=== PATIENT | male | born 1965 | race Caucasian/White ===

== ENCOUNTER 2016-11-08 08:23 | Emergency (ER) | payer BC, OTHER ==
[~2016-11-08] VITALS: Ht 180.3 cm; Wt 81.6 kg
--- OUTSIDE RECORDS SUMMARY | 2016-11-08 08:30 | XMS REPORT ---
Author Author NAVNEET MAN [facility] eClinicalWorks Address Unknown Phone Unavailable Care Team Providers Care General Machine Operator Name Role Phone NAVNEET MAN CP Unavailable Allergies, Adverse Reactions, Alerts Substance Reaction Event Type N.K.D.A. Info Not Available Non Drug Allergy Problems Problem Type Condition Code Onset Dates Condition Status Problem Chest pain, other 786.59 Active Problem Other dyspnea and respiratory abnormalities 786.09 Active Problem Nondependent tobacco use disorder 305.1 Active Problem Chronic airway obstruction, not elsewhere classified 496 Active Assessment Corneal abrasion S05.00XA Active Medications Medication Code System Code Instructions Start Date End Date Status Dosage Tobramycin [facility] [id number] 0.3 % Ophthalmic 4 times a day Sep 08, 2015 3 drop into affected eye Procedures Procedure Coding System Code Date Office Visit, Est Pt., Level 3 CPT-4 80169 Sep 08, 2015 Vital Signs Date/Time: Sep 08, 2015 Temperature 97.9 F Weight 174.5 lbs Height 74 in BMI 22.40 Index Blood Pressure Diastolic 72 mmHg Blood Pressure Systolic 118 mmHg Cardiac Monitoring Heart Rate 72 bpm Results No Known Results Summary Purpose eClinicalWorks Submission
[2016-11-08] MEDS ORDERED: LACTATED RINGERS 1,000 ML IV ONE (08:43)
[2016-11-08] MEDS ORDERED: ONDANSETRON 4 MG/2 ML (SDV) Z0FRAN IVP ONE (08:45)
--- NOTE | 2016-11-08 09:04 | ED General ---
General Chief Complaint: Abdominal/GI Problems Stated Complaint: VOMITING;FEVER Nursing Triage Note: c/o intermittant chills/fever/headache since Sat. Nursing Sepsis Screen: No Definite Risk Source of Information: Patient Exam Limitations: No Limitations History of Present Illness Time Seen by Provider: 08:52 Initial Comments This 51-year-old gentleman presents to the emergency room with complaints of myalgia, chills, vomiting, and headache 2 days. He has not taken any medications for this. Yesterday he felt dizzy as well. He is notably dyspneic which she states is chronic from his COPD. He denies any change in cough or respiratory status. Allergies and Home Medications Allergies Coded Allergies: guaifenesin (Unverified Allergy, Unknown, 11/08/16) Home Medications Ondansetron 4 Mg Tab.rapdis #10 4 MG PO Q4H PRN PRN NAUSEA/VOMITING Prescribed by: DANIEL LOUISE on 11/08/16 0951 Oseltamivir Phosphate 75 Mg Cap #10 75 MG PO BID Prescribed by: DANIEL LOUISE on 11/08/16 0951 Constitutional: see HPI EENTM: no symptoms reported Respiratory: see HPI Cardiovascular: no symptoms reported Gastrointestinal: see HPI Genitourinary: no symptoms reported Musculoskeletal: no symptoms reported Skin: no symptoms reported Psychiatric/Neurological: No Symptoms Reported Hematologic/Lymphatic: No Symptoms Reported Past Vtupgwe-Nxghis-Qyicjo Hx Patient Social History Recreational Drug Use: Yes (occasional marijuana) Smoking Status: Current Everyday Smoker Recent Foreign Travel: No Contact w/Someone Who Travel: No Recent Infectious Disease Expo: No Surgeries HX Surgeries: No Respiratory Hx Respiratory Disorders: Yes (tobaccoism) Respiratory Disorders: COPD Cardiovascular Hx Cardiac Disorders: No Neurological Hx Neurological Disorders: No Reproductive System Hx Reproductive Disorders: No Genitourinary Hx Genitourinary Disorders: No Gastrointestinal Hx Gastrointestinal Disorders: No Musculoskeletal Hx Musculoskeletal Disorders: No Endocrine Hx Endocrine Disorders: No HEENT HX ENT Disorders: No Cancer Hx Cancer: No Psychosocial Hx Psychiatric Problems: No Integumentary HX Skin/Integumentary Disorder: No Physical Exam Vital Signs Vital Sign - Last 12Hours 11/08/16 08:40 Temp 98.1 Pulse 83 Resp 20 B/P 108/59 Pulse Ox 96 O2 Delivery Room Air Capillary Refill : Less Than 3 Seconds General Appearance: WD/WN Mild Distress Thin HEENT: PERRL/EOMI Normal ENT Inspection Pharynx Normal Neck: Normal Inspection Respiratory: Lungs Clear Normal Breath Sounds No Accessory Muscle Use No Respiratory Distress Other (dyspnea, tachypnea) Cardiovascular: Regular Rate, Rhythm No Edema No Murmur Gastrointestinal: Normal Bowel Sounds Non Tender Soft Extremity: Normal Inspection No Pedal Edema Neurologic/Psychiatric: Alert Oriented x3 No Motor/Sensory Deficits Normal 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 Norm as Tested Skin: Normal Color Warm/Dry Progress/Results/Core Measures Results/Orders Lab Results Laboratory Tests Test 11/08/16 08:50 11/08/16 09:05 Range/Units Urine Bacteria NEGATIVE /HPF Urine Bilirubin NEGATIVE NEGATIVE Urine Casts NONE /LPF Urine Clarity SLIGHTLY CLOUDY Urine Color YELLOW Urine Crystals NONE /LPF Urine Culture Indicated YES Urine Glucose (UA) NEGATIVE NEGATIVE Urine Ketones 3+ H NEGATIVE Urine Leukocyte Esterase 2+ H NEGATIVE Urine Mucus LARGE H /LPF Urine Nitrite NEGATIVE NEGATIVE Urine Protein 2+ H NEGATIVE Urine RBC 2-5 H /HPF Urine RBC (Auto) 2+ H NEGATIVE Urine Specific [place] 1.020 1.016-1.022 Urine Squamous Epithelial Cells NONE /HPF Urine Urobilinogen 1 NORMAL MG/DL Urine WBC 5-10 H /HPF Urine pH 6 5-9 Alanine Aminotransferase (ALT/SGPT) 17 0-55 U/L Albumin 4.5 3.2-4.5 G/DL Alkaline Phosphatase 106 40-136 U/L Anion Gap 13 5-14 MMOL/L Aspartate Amino Transf (AST/SGOT) 20 5-34 U/L BUN/Creatinine Ratio 10 Basophils # (Auto) 0.1 0.0-0.1 10^3/uL Basophils (%) (Auto) 1 0-10 % Blood Urea Nitrogen 10 7-18 MG/DL Calcium Level 9.6 8.5-10.1 MG/DL Carbon Dioxide Level 19 L 21-32 MMOL/L Chloride Level 98 98-107 MMOL/L Creatinine 1.00 0.60-1.30 MG/DL Eosinophils # (Auto) 0.0 0.0-0.3 10^3/uL Eosinophils (%) (Auto) 1 0-10 % Estimat Glomerular Filtration Rate > 60 Glucose Level 96 70-105 MG/DL Hematocrit 46 40-54 % Hemoglobin 16.2 13.3-17.7 G/DL Lipase 22 8-78 U/L Lymphocytes # (Auto) 0.7 L 1.0-4.0 X 10^3 Lymphocytes (%) (Auto) 12 12-44 % Magnesium Level 2.2 1.8-2.4 MG/DL Mean Corpuscular Hemoglobin 28 25-34 PG Mean Corpuscular Hemoglobin Concent 36 32-36 G/DL Mean Corpuscular Volume 78 L 80-99 FL Mean Platelet Volume 11.1 H 7.4-10.4 FL Monocytes # (Auto) 0.6 0.0-1.0 X 10^3 Monocytes (%) (Auto) 10 0-12 % Neutrophils # (Auto) 4.9 1.8-7.8 X 10^3 Neutrophils (%) (Auto) 77 H 42-75 % Platelet Count 226 130-400 10^3/uL Potassium Level 4.2 3.6-5.0 MMOL/L Red Blood Count 5.82 4.35-5.85 10^6/uL Red Cell Distribution Width 13.9 10.0-14.5 % Sodium Level 130 L 135-145 MMOL/L Total Bilirubin 0.6 0.1-1.0 MG/DL Total Creatine Kinase 150 30-200 U/L Total Protein 8.0 6.4-8.2 G/DL White Blood Count 6.3 4.3-11.0 10^3/uL Micro Results Microbiology 11/08/16 Influenza Types A,B Antigen (PATY) - Final, Complete My Orders Orders-DANIEL TIRADO MD Cbc With Automated Diff (11/08/16 08:26) Comprehensive Metabolic Panel (11/08/16 08:26) Lipase (11/08/16 08:26) Saline Lock/Iv-Start (11/08/16 08:26) Ua Culture If Indicated (11/08/16 08:27) Magnesium (11/08/16 08:43) Lactated Ringers (Lr 1000 Ml Iv Solution (11/08/16 08:43) Ondansetron Injection (Zofran Injectio (11/08/16 08:45) Creatine Kinase (11/08/16 09:00) Chest Pa/Lat (2 View) (11/08/16 09:04) Influenza A And B Antigens (11/08/16 09:08) Urine Culture (11/08/16 08:50) Ketorolac Injection (Toradol Injection) (11/08/16 10:00) Acetaminophen Tablet (Tylenol Tablet) (11/08/16 10:00) Medications Given in ED Vital Signs/I&O Blood Pressure Mean: 75 Progress Note : Time: 09:07 Progress Note Patient seen and examined. IV fluids and Zofran ordered. Labs pending. Chest x-ray pending. Diagnostic Imaging Diagonstic Imaging: Xray Plain Films/CT/US/NM/MRI: chest Comments Chest x-ray viewed by me and report reviewed. See report below: NAME: [facility] REC#: [id number] PT STATUS: REG ER : 1965 PHYSICIAN: DANIEL TIRADO MD ADMIT DATE: 11/08/16/ER Draft Date of Exam:11/08/16 CHEST PA/LAT (2 VIEW) INDICATION: Lower respiratory infection. PA and lateral chest. Heart and mediastinum are normal. Lungs are clear. There are no effusions or pneumothoraces. IMPRESSION: Negative chest. Dictated on workstation # [id number] Dict: 11/08/16 0934 Trans: 11/08/16 0935 TAYLOR [id number] Interpreted by: HERNAN QUIROZ Departure Impression Impression: Primary Impression: Influenza A Additional Impressions: Nausea and vomiting Qualified Code: R11.2 - Nausea with vomiting, unspecified Myalgia Headache Qualified Code: R51 - Headache Disposition: 01 HOME, SELF-CARE Condition: Improved Departure-Patient Inst. Decision time for Depature: 09:49 Referrals: NO,LOCAL PHYSICIAN (PCP/Family) Primary Care Physician Patient Instructions: Flu Add. Discharge Instructions: Dissolve Zofran under the tongue every 4 hours as needed for nausea and vomiting. Drink plenty of clear liquids. Use Tamiflu as prescribed for treatment of influenza. Return to care if symptoms worsen. Avoid contact with other people until symptoms resolve. You may use Tylenol up to 1000 mg every 6 hours as needed for pain or fever and/or ibuprofen up to 800 mg every 8 hours as needed for pain or fever. All discharge instructions reviewed with patient and/or family. Voiced understanding. Scripts Oseltamivir Phosphate (Tamiflu)75 Mg Cap75 Mg PO BID #10 CAP Prov:DANIEL TIRADO MD 11/08/16 Ondansetron (Zofran Odt)4 Mg Tab.rapdis4 Mg PO Q4H PRN NAUSEA/VOMITING #10 TAB Prov:DANIEL TIRADO MD 11/08/16 DANIEL TIRADO MD Nov 08, 2016 09:04 Impression Impression: Primary Impression: Influenza A Additional Impressions: Nausea and vomiting Qualified Code: R11.2 - Nausea with vomiting, unspecified Myalgia Headache Qualified Code: R51 - Headache Disposition: 01 HOME, SELF-CARE Condition: Improved Departure-Patient Inst. Decision time for Depature: 09:49 Referrals: NO,LOCAL PHYSICIAN (PCP/Family) Primary Care Physician Patient Instructions: Flu Add. Discharge Instructions: Dissolve Zofran under the tongue every 4 hours as needed for nausea and vomiting. Drink plenty of clear liquids. Use Tamiflu as prescribed for treatment of influenza. Return to care if symptoms worsen. Avoid contact with other people until symptoms resolve. You may use Tylenol up to 1000 mg every 6 hours as needed for pain or fever and/or ibuprofen up to 800 mg every 8 hours as needed for pain or fever. All discharge instructions reviewed with patient and/or family. Voiced understanding. Scripts Oseltamivir Phosphate (Tamiflu)75 Mg Cap75 Mg PO BID #10 CAP Prov:DANIEL TIRADO MD 11/08/16 Ondansetron (Zofran Odt)4 Mg Tab.rapdis4 Mg PO Q4H PRN NAUSEA/VOMITING #10 TAB Prov:DANIEL TIRADO MD 11/08/16 DANIEL TIRADO MD Nov 08, 2016 09:04
[2016-11-08 09:15] LABS: BASOPHILS # (AUTO) 0.1 10^3/uL (0.0-0.1); BASOPHILS % (AUTO) 1 % (0-10); EOSINOPHILS % (AUTO) 1 % (0-10); LYMPHOCYTES # (AUTO) 0.7 X 10^3 (1.0-4.0); LYMPHOCYTES % (AUTO) 12 % (12-44); MEAN CORPUSCULAR HEMOGLOBIN 28 PG (25-34); MEAN CORPUSCULAR HGB CONC 36 G/DL (32-36); MEAN CORPUSCULAR VOLUME 78 FL (80-99); MEAN PLATELET VOLUME 11.1 FL (7.4-10.4); MONOCYTES # (AUTO) 0.6 X 10^3 (0.0-1.0); MONOCYTES % (AUTO) 10 % (0-12); NEUTROPHILS # (AUTO) 4.9 X 10^3 (1.8-7.8); NEUTROPHILS % (AUTO) 77 % (42-75); PLATELET COUNT 226 10^3/uL (130-400); RED BLOOD COUNT 5.82 10^6/uL (4.35-5.85); RED CELL DISTRIBUTION WIDTH 13.9 % (10.0-14.5); WHITE BLOOD COUNT 6.3 10^3/uL (4.3-11.0)
[2016-11-08 09:16] LABS: BILIRUBIN,URINE NEGATIVE (NEGATIVE); KETONES,URINE 3+ (NEGATIVE); LEUKOCYTE ESTERASE ,URINE 2+ (NEGATIVE); NITRITE,URINE NEGATIVE (NEGATIVE); PH,URINE 6 (5-9); PROTEIN,URINE 2+ (NEGATIVE); UROBILINOGEN,URINE 1 MG/DL (NORMAL)
--- NOTE | 2016-11-08 09:35 | Diagnostic Imaging Report ---
INDICATION: Lower respiratory infection. PA and lateral chest. Heart and mediastinum are normal. Lungs are clear. There are no effusions or pneumothoraces. IMPRESSION: Negative chest. Dictated by: Dictated on workstation # [id number]
[2016-11-08 09:43] LABS: ALANINE AMINOTRANSFERASE 17 U/L (0-55); ALBUMIN 4.5 G/DL (3.2-4.5); ANION GAP 13 MMOL/L (5-14); ASPARTATE AMINO TRANSFERASE 20 U/L (5-34); BILIRUBIN,TOTAL 0.6 MG/DL (0.1-1.0); BLOOD UREA NITROGEN 10 MG/DL (7-18); BUN/CREATININE RATIO 10; CALCIUM 9.6 MG/DL (8.5-10.1); CARBON DIOXIDE 19 MMOL/L (21-32); CHLORIDE 98 MMOL/L (98-107); CREATINE KINASE 150 U/L (30-200); GFR ESTIMATED > 60; GLUCOSE 96 MG/DL (70-105); LIPASE 22 U/L (8-78); MAGNESIUM 2.2 MG/DL (1.8-2.4); POTASSIUM 4.2 MMOL/L (3.6-5.0); SODIUM 130 MMOL/L (135-145)
[2016-11-08] MEDS ORDERED: ONDA4TAB8 PO (09:51)
[2016-11-08] MEDS ORDERED: OSLT75C PO (09:51)
[2016-11-08] MEDS ORDERED: KETOROLAC 30 MG/ML VIAL IVP ONE (10:00)
[2016-11-08] MEDS ORDERED: ACETAMINOPHEN 500 MG TAB (TYLENOL) PO ONE (10:00)
[2016-11-08 10:10] VITALS: BP 108/72
== END 2016-11-08 10:10 | disposition home or self-care (01) ==
LOC: EDUNIT# 08:23 → ER 08:27
DX: J09.X3 Influenza due to identified novel influenza A virus with gastrointestinal manifestations (principal); R51 Headache
CPT/HCPCS: 36415; 71020; 80053; 81000; 82550; 83690; 83735; 85025; 87088; 87804; 96361; 96374; 96375